=== PATIENT | female | born 1990 | race Caucasian/White ===

== ENCOUNTER 2016-08-24 21:09 | Emergency (ER) | payer OTHER ==
[~2016-08-24] VITALS: Ht 167.6 cm; Wt 98.7 kg
[~2016-08-24 21:09] MED LIST: BCPILLS PO; IBUP-103 PO; inhaler INH
[2016-08-24 21:13] VITALS: TEMP 37.1; Ht 167.6 cm; Wt 98.7 kg
[2016-08-24] MEDS ORDERED: BISM262S7 PO (21:29)
[2016-08-24] MEDS ORDERED: SODIUM CHLORIDE 0.9% 1000ML 1,000 ML IV STA (22:12)
[2016-08-24] MEDS ORDERED: ONDANSETRON INJ 2 MG/ML 2 ML VIAL IV STA (22:12)
[2016-08-24 22:44] LABS: BUN/CREATININE RATIO 10.5 (10-20); CALCIUM 8.4 mg/dl (8.5-10.1); CREATININE 0.81 mg/dl (0.60-1.20); POTASSIUM 3.6 mmol/L (3.5-5.1)
[2016-08-24 23:00] VITALS: BP 120/79; PULSE 81; O2SAT 100
[2016-08-24 23:11] LABS: BASO % 0.7 %; BASO ABS # 0.05 K/uL (0-0.2); COMPLETE YES; EOS % 1.9 %; HEMATOCRIT 38.3 % (37-47); IG% 0.1 %; LYMPH % 35.6 %; LYMPH ABS # 2.62 K/uL (1.2-3.4); MEAN CELL VOLUME 83.1 fL (80-100); MEAN CORPUSCULAR HEMOGLOBIN 28.2 pg (25-34); MEAN CORPUSCULAR HGB CONC 33.9 g/dl (32-36); MEAN PLATELET VOLUME 10.2 fL (7.4-10.4); NEUT % 53.7 %; PLATELET COUNT 303 K/uL (130-400); RED BLOOD COUNT 4.61 M/uL (4.2-5.4); WHITE BLOOD COUNT 7.35 K/uL (4.8-10.8)
[2016-08-24] MEDS ORDERED: ONDA4TAB10 SL (23:17)
[2016-08-24] MEDS ORDERED: ONDANSETRON HOME PACK 4MG OD TAB PO ONE (23:30)
--- NOTE | 2016-08-25 02:32 | EMERGENCY ROOM VISIT NOTE ---
History Report prepared by Isaac: Nathalie Joseph Under the Supervision of: Dr. Alfredo Banerjee M.D. First contact with patient: 22:00 Chief Complaint: DIZZY Stated Complaint: WOOZY,NAUSEA,BLACK STOOL,DIZZY Nursing Triage Summary: Patient with c/o dizziness, nausea and vomitting and black stools. Patient took Pepto Bismol for symptoms prior to arrival. History of Present Illness The patient is a 26 year old female who presents to the Emergency Room with complaints of an episode of dizziness occurring earlier today. The patient states that earlier this week she had a "miscommunication" with her PCP that resulted in her taking twice as much naproxen than she was supposed to. She only had 2 extra doses in total. The next day (4 days ago) she developed nausea and vomiting. This lasted for a day. Two days ago she experienced 2 episodes of diarrhea and continued to be nauseated. The patient states that today she has been eating better, but still not drinking as much water as usual. This evening she became lightheaded, dizzy, and hot. She had a bowel movement that was loose and black. The patient has been taking Pepto Bismol since yesterday. Her family friend is a NATALIIA and advised her to come to the ED for further evaluation. The patient denies urinary symptoms, chest pain, shortness of breath, palpitations, sick contacts, recent antibiotic use, and any recent foreign travel. She had one episode of vomiting upon arrival in the ED tonight. Source of History: patient Onset: earlier today Position: other (global) Quality: other (dizziness) Timing: other (episode) Modifying Factors (Worsening): other (recent medication noncompliance) Associated Symptoms: + diarrhea, + melena, + nausea, + vomiting, No SOB, No chest pain, No urinary symptoms Note: Pt denies palpitations, sick contacts, recent antibiotic use, and any recent foreign travel. Review of Systems See HPI for pertinent positives & negatives. A total of 10 systems reviewed and were otherwise negative. Past Medical & Surgical Medical Problems: (1) Acute appendicitis (2) Asthma (3) Bronchitis (4) Pneumonia Family History Cancer Diabetes mellitus Heart disease Hypertension Social History Smoking Status: Current Some Day Smoker Smokeless Tobacco Use: No Alcohol Use: occasionally Drug Use: none Marital Status: in relationship Housing Status: lives with family Occupation Status: employed Current/Historical Medications Scheduled Control Pills ( Control Pills), 1 TAB PO DAILY Ondasetron Odt (Zofran Odt), 4 MG SL Q6H Scheduled PRN Bismuth Subsalicylate (Pepto-Bismol), 30 ML PO Q8 PRN for GI Upset Allergies Coded Allergies: Birds (Unverified Allergy, Intermediate, SHORTNESS OF BREATH, 08/24/16) Dust (Unverified Allergy, Mild, sneezing, 08/24/16) Physical Exam Vital Signs Date Time Temp Pulse Resp B/P Pulse Ox O2 Delivery O2 Flow Rate FiO2 08/24/16 23:00 81 16 120/79 100 Room Air 08/24/16 21:48 89 08/24/16 21:13 37.1 92 16 140/87 97 Room Air Physical Exam Constitutional: Vital signs reviewed. Eyes: Pupils are equal round reactive to light. Conjunctiva are noninjected. ENT: Pharynx is clear without erythema or exudate. Mucous membranes are slightly dry. Neck supple without meningeal signs. Respiratory: Clear to auscultation bilaterally. Breath sounds are equal bilaterally. Cardiovascular: Regular rate and rhythm. No rubs or gallops. GI: Soft, nondistended and nontender. Bowel sounds are present. Rectal: Guaiac negative black stool. Musculoskeletal: No peripheral edema. No lower extremity tenderness. Integumentary: No cyanosis. Neurological: The patient is awake and alert. No focal deficits. Psychiatric: Normal affect. Medical Decision & Procedures Laboratory Results 08/24/16 22:19 Red Blood Count 4.61, Mean Corpuscular Volume 83.1, Mean Corpuscular Hemoglobin 28.2, Mean Corpuscular Hemoglobin Concent 33.9, Mean Platelet Volume 10.2, Neutrophils (%) (Auto) 53.7, Lymphocytes (%) (Auto) 35.6, Monocytes (%) (Auto) 8.0, Eosinophils (%) (Auto) 1.9, Basophils (%) (Auto) 0.7, Neutrophils # (Auto) 3.94, Lymphocytes # (Auto) 2.62, Monocytes # (Auto) 0.59, Eosinophils # (Auto) 0.14, Basophils # (Auto) 0.05 08/24/16 22:19 Test 08/24/16 22:19 White Blood Count 7.35 K/uL (4.8-10.8) Red Blood Count 4.61 M/uL (4.2-5.4) Hemoglobin 13.0 g/dL (12.0-16.0) Hematocrit 38.3 % (37-47) Mean Corpuscular Volume 83.1 fL (80-100) Mean Corpuscular Hemoglobin 28.2 pg (25-34) Mean Corpuscular Hemoglobin Concent 33.9 g/dl (32-36) Platelet Count 303 K/uL (130-400) Mean Platelet Volume 10.2 fL (7.4-10.4) Neutrophils (%) (Auto) 53.7 % Lymphocytes (%) (Auto) 35.6 % Monocytes (%) (Auto) 8.0 % Eosinophils (%) (Auto) 1.9 % Basophils (%) (Auto) 0.7 % Neutrophils # (Auto) 3.94 K/uL (1.4-6.5) Lymphocytes # (Auto) 2.62 K/uL (1.2-3.4) Monocytes # (Auto) 0.59 K/uL (0.11-0.59) Eosinophils # (Auto) 0.14 K/uL (0-0.5) Basophils # (Auto) 0.05 K/uL (0-0.2) RDW Standard Deviation 40.6 fL (36.4-46.3) RDW Coefficient of Variation 13.5 % (11.5-14.5) Immature Granulocyte % (Auto) 0.1 % Immature Granulocyte # (Auto) 0.01 K/uL (0.00-0.02) Anion Gap 11.0 mmol/L (3-11) Est Creatinine Clear Calc Drug Dose 125.8 ml/min Estimated GFR () 117.0 Estimated GFR (Non- 100.9 BUN/Creatinine Ratio 10.5 (10-20) Calcium Level 8.4 mg/dl (8.5-10.1) Total Bilirubin 0.3 mg/dl (0.2-1) Direct Bilirubin 0.1 mg/dl (0-0.2) Aspartate Amino Transf (AST/SGOT) 30 U/L (15-37) Alanine Aminotransferase (ALT/SGPT) 37 U/L (12-78) Alkaline Phosphatase 62 U/L (45-117) Total Protein 7.6 gm/dl (6.4-8.2) Albumin 3.1 gm/dl (3.4-5.0) Lipase 279 U/L (73-393) Laboratory results as reviewed by me. Medications Administered Medications (Trade) Dose Ordered Sig/Lashay Route Start Time Stop Time Status Last Admin Dose Admin Sodium Chloride (Nss 1000ml) 1,000 ml @ 999 mls/hr Q1H1M STAT IV 08/24/16 22:12 08/24/16 23:12 DC 08/24/16 22:22 999 MLS/HR Ondansetron HCl (Zofran Inj) 4 mg NOW STAT IV 08/24/16 22:12 08/24/16 22:13 DC 08/24/16 22:41 4 MG Ondansetron HCl (ZOFRAN ODT 4MG Home Pack) 1 homepack UD ONCE PO 08/24/16 23:30 08/24/16 23:31 DC 08/24/16 23:30 1 HOMEPACK ECG Indication: other (dizziness) Rate (beats per minute): 73 Rhythm: normal sinus Findings: no acute ischemic change, no ectopy, other (no preexcitation or heart block) ED Course 2200: The patient was evaluated in room B6. A complete history and physical exam was performed. 2212: Zofran Inj 4 mg IV, NSS 1000 ml @ 999 mls/hr. 2315: I reassessed the patient at this time. She is feeling better and resting comfortably. I discussed the test results and treatment plan with the patient. I answered all pertaining questions that she had. She expressed understanding and verbalized agreement. The patient will be discharged home. 2330: Ondansetron HCl 1 homepack PO. Medical Decision This is a 26-year-old female presents with vomiting, diarrhea and lightheadedness. Differential diagnosis includes food borne illness, gastroenteritis, dehydration, metabolic derangement, renal failure. I did perform a limited focused review of portions of the patient's old chart on the electronic medical record. The patient has had no recent pertinent visits to this hospital. I did evaluate the patient as noted above. IV access was established. I did order and personally review the patient's 12-lead EKG as described above. I did order and review the patient's blood work as noted in the electronic medical record. The patient is not anemic. Electrolytes and LFTs are unremarkable. I did treat patient with normal saline IV and Zofran IV. I did reassess the patient. She is feeling much better. I did discuss the test results with her. I did recommend follow up with her doctor. She was discharged with a prescription for Zofran. Impression Primary Impression: Dehydration Additional Impressions: Vomiting and diarrhea Dizziness Scribe Attestation The scribe's documentation has been prepared under my direct and personally reviewed by me in its entirety. I confirm that the note above accurately reflects all work, treatment, procedures, and medical decision making performed by me. Departure Information Dispostion Home / Self-Care Prescriptions Ondasetron Odt (ZOFRAN ODT) 4 Mg Tab 4 MG SL Q6H for Nausea, #6 TAB Prov: Alfredo Banerjee M.D. 08/24/16 Referrals No Doctor, Assigned (PCP) Forms HOME CARE DOCUMENTATION FORM, IMPORTANT VISIT INFORMATION Patient Instructions Dehydration, My [facility] Additional Instructions You have been examined and treated today on an emergency basis only. This is not a substitute for, or an effort to provide, complete comprehensive medical care. It is impossible to recognize and treat all injuries or illnesses in a single emergency department visit. It is therefore important that you follow up closely with your physician. Call as soon as possible for an appointment. Return for worsening symptoms or if you develop fever, abdominal pain or any other concerning symptoms. Problem Qualifiers
== END 2016-08-24 23:34 | disposition home or self-care (01) ==
LOC: C.EDB 21:10
DX: E86.0 Dehydration (principal); R42 Dizziness and giddiness; R11.10 Vomiting, unspecified; R19.7 Diarrhea, unspecified; J45.909 Unspecified asthma, uncomplicated; F17.200 Nicotine dependence, unspecified, uncomplicated; Z91.09 Other allergy status, other than to drugs and biological substances; Z80.9 Family history of malignant neoplasm, unspecified; Z83.3 Family history of diabetes mellitus; Z82.49 Family history of ischemic heart disease and other diseases of the circulatory system